=== PATIENT | female | born 1975 | race Hispanic/Latino ===

== ENCOUNTER → 2017-04-08 | Outpatient (CLI) | payer BC ==
--- NOTE | 2017-04-09 08:25 | Diagnostic Imaging Report ---
#[id number] - MGDXLTUNI #UNILATERAL LEFT DIGITAL DIAGNOSTIC MAMMOGRAM WITH CAD: 04/08/2017 Comparison is made to exam dated: 01/09/2017 mammogram - [facility]. Current study contains 4 films. The tissue of the left breast is heterogeneously dense. This may lower the sensitivity of mammography. Current study was also evaluated with a Computer Aided Detection (CAD) system. The density in question appears to press out and appears benign. No significant masses, calcifications, or other findings are seen in the breast. There has been no significant interval change. IMPRESSION: BENIGN There is no mammographic evidence of malignancy. A 1 year screening mammogram is recommended. The patient will be notified by letter of the results. Camron Singleton Jr., D.O. cw/:04/08/2017 14:28:38 Fibre Composite Technician: Shandra RHODES)([place]), [facility] letter sent: Compared to Prior B9 Mammogram BI-RADS: 2 Benign
--- NOTE | 2017-04-09 08:25 | Diagnostic Imaging Report ---
#[id number] - USBRELIMLT ULTRASOUND OF THE LEFT BREAST : 04/08/2017 Comparison is made to exams dated: 04/08/2017 mammogram - [facility] and 01/09/2017 mammogram - [facility]. Color flow and real-time ultrasound were performed on the left breast with scanning in the upper outer aspect. There are no cystic or solid masses identified. IMPRESSION: NEGATIVE There is no sonographic evidence of malignancy. A 1 year screening mammogram is recommended. Camron Singleton Jr., D.O. cw/:04/08/2017 14:51:01 Collection Advisor: FREDRICK CHAVES, [facility] letter sent: Normal Exam Ultrasound BI-RADS: 1 Negative
== END ==
LOC: MAMMO 12:54
PROVIDERS: ATTEND Family Medicine
DX: R92.2 Inconclusive mammogram (principal)

== ENCOUNTER → 2022-05-20 | Outpatient (CLI) | payer BC | LOC: MAMMO 09:43 | PROVIDERS: ATTEND Obstetrics & Gynecology | DX: Z12.31 Encounter for screening mammogram for malignant neoplasm of breast (principal) | CPT/HCPCS: 77067 ==

== ENCOUNTER → 2022-05-29 | Outpatient (CLI) | payer BC | LOC: MAMMO 09:22 | PROVIDERS: ATTEND Obstetrics & Gynecology | DX: R92.2 Inconclusive mammogram (principal) ==

== ENCOUNTER → 2022-12-11 | Outpatient (REF) | payer BC | LOC: US 09:16 | PROVIDERS: ATTEND Family Medicine | DX: R92.8 Other abnormal and inconclusive findings on diagnostic imaging of breast (principal) ==